=== PATIENT | male | born 1980 | race Caucasian/White ===

== ENCOUNTER 2016-12-02 22:15 | Emergency (ER) | payer SELFPAY ==
[~2016-12-02 22:15] MED LIST: AMOXIL500 M; AMOXIL500 MG PO; ATIVAN2 MG; AUGMENTIN1 TAB.SR . PO; AURALGAN EAR DR15 ML OT; CIPRO500 MG PO; CORTISPORIN EAR10 M EACH EAR; CORTISPORIN EAR10 ML OT; CYCLOBENZAPRINE10 M1 PO; DEXAMETHASONE2 M1 PO; FLEXERIL10 MG PO; IBUPROFEN600 M1 PO; LORTAB 7.5/5001 TAB PO; NAPROSYN500 MG PO; NO HOME MEDICATION; NO HOME MEDS; NO MEDS; NORCO 10-325 T1 EACH PO; NORCO 5-325 TA1 EACH PO; NORCO 5/325 TAB1 TAB PO; NORCO 5/3251 TAB PO; OXYCODONE/APAP PO; PERCOCET 5/3251 TAB PO; PREDNISONE10 MG PO
[2016-12-02] MEDS ORDERED: IBUPROFEN200 M2 PO (22:47)
[2016-12-02] MEDS ORDERED: TRAMADOL HCL50 M2 PO (23:56)
== END 2016-12-03 00:05 ==
LOC: EDMED 22:15
DX: S46.912A Strain of unspecified muscle, fascia and tendon at shoulder and upper arm level, left arm, initial encounter (principal); X58.XXXA Exposure to other specified factors, initial encounter
CPT/HCPCS: J1885